=== PATIENT | female | born 1985 | race Caucasian/White ===

== ENCOUNTER 2020-05-12 03:02 | Inpatient (IN) | payer BC, SELFPAY ==
[~2020-05-12] VITALS: Ht 160 cm; Wt 135.6 kg
[2020-05-12 03:05] VITALS: BP_SYST 148
[2020-05-12] MEDS ORDERED: IBUP-1969 PO (03:24)
[2020-05-12] MEDS ORDERED: TRAM100T28 PO (03:24)
[2020-05-12] MEDS ORDERED: NACL 0.9% 1,000 ML IV ONE (03:45)
[2020-05-12] MEDS ORDERED: ONDANSETRON HCL 4 MG/2 ML VIAL IVP ONE (03:45)
[2020-05-12] MEDS ORDERED: traMADol HCL HCL 50 MG TABLET (ULTRAM) PO ONE (03:45)
[2020-05-12] MEDS ORDERED: ONDANSETRON HCL 4 MG/2 ML VIAL ONE (03:53)
[2020-05-12] MEDS ORDERED: MORPHINE 4 MG/ML INJ. SYRINGE IVP ONE (04:00)
[2020-05-12 04:15] LABS: WHITE BLOOD COUNT (AUTO) 11.9 K/uL (4.8-10.8)
[2020-05-12 04:20] LABS: BASOPHILS % (AUTO) 0.3 % (0.0-2.0); EOSINOPHILS # (AUTO) 0.2 K/uL (0.0-0.4); EOSINOPHILS % (AUTO) 1.5 % (0.0-4.0); HEMATOCRIT 40.2 % (36-48); HEMOGLOBIN 13.8 g/dL (12.0-16.0); LYMPHOCYTES # (AUTO) 1.9 K/uL (1.0-5.5); LYMPHOCYTES % (AUTO) 16.4 % (20.5-51.5); MEAN CORPUSCULAR HEMOGLOBIN 30 pg (27-31); MEAN CORPUSCULAR HGB CONC 34 % (32-36); MEAN CORPUSCULAR VOLUME 88 fL (79.0-98.0); MONOCYTES # (AUTO) 0.7 K/uL (0.0-1.0); MONOCYTES % (AUTO) 5.5 % (1.7-9.3); NEUTROPHILS # (AUTO) 9.1 K/uL (1.8-7.7); NEUTROPHILS % (AUTO) 76.3 % (40.0-70.0); PLATELET COUNT (AUTO) 419 K/uL (130-430); RED BLOOD CELL COUNT(AUTO) 4.59 MIL/uL (4.2-6.2); RED CELL DISTRIBUTION WIDTH 13.9 % (9.0-15.0)
[2020-05-12 04:27] LABS: CREATININE 0.94 mg/dL (0.55-1.30); POTASSIUM 3.3 mmol/L (3.5-5.1)
[2020-05-12 04:29] LABS: BILIRUBIN,URINE NEGATIVE (NEGATIVE); BLOOD, URINE 1+ (NEGATIVE); CLARITY/URINE CLEAR (CLEAR); COLOR,URINE YELLOW (YELLOW); GLUCOSE,URINE NEGATIVE (NEGATIVE); KETONES,URINE NEGATIVE (NEGATIVE); LEUKOCYTE ESTERASE ,URINE 3+ (NEGATIVE); NITRITE, URINE NEGATIVE (NEGATIVE); PROTEIN URINE NEGATIVE (NEGATIVE); UROBILINOGEN,URINE 0.2 (0.2-1.0)
[2020-05-12 04:33] LABS: ALBUMIN 3.4 g/dL (3.4-4.8); TOTAL BILIRUBIN 0.4 mg/dL (0.0-1.0)
[2020-05-12 04:36] LABS: BACTERIA,URINE MANY /HPF (None Seen); WBC,URINE 50-80 /HPF (0-3)
[2020-05-12] MEDS ORDERED: cefTRIAXone 1 GM IVPB PREMIX 50 ML IV ONE ×2 (04:45→04:46)
[2020-05-12] MEDS ORDERED: KETOROLAC TROMETHAMINE 30 MG VIAL ONE (05:39)
[2020-05-12] MEDS ORDERED: KETOROLAC TROMETHAMINE 30 MG VIAL IVP ONE (05:45)
[2020-05-12] MEDS ORDERED: OMEP20TA20 PO (05:54)
[2020-05-12] MEDS: cefTRIAXone 1 GM IVPB PREMIX 50 ML IV SCH (09:00)
[2020-05-12 09:12] VITALS: BP_SYST 137
[2020-05-12] MEDS: HYDROmorphone 1 MG INJ. 1 MG/ML AMPUL IVP PRN ×2 (13:36→18:43)
[2020-05-12] MEDS ORDERED: ENOXAPARIN SODIUM 40 MG/0.4 ML SYRINGE SUBCUT ONE (15:30)
[2020-05-12] MEDS ORDERED: PANTOPRAZOLE SODIUM 40 MG TAB PO ONE (15:45)
[2020-05-12] MEDS ORDERED: PANTOPRAZOLE SODIUM 40 MG TAB ONE (17:57)
[2020-05-12] MEDS: KCL 20 mEq in D5/0.45NS 1000mL 1,000 ML IV SCH ×2 (18:23→19:05)
[2020-05-12 20:00] VITALS: BP_SYST 128
[2020-05-12] MEDS ORDERED: KETOROLAC TROMETHAMINE 15 MG VIAL IVP PRN (20:15)
[2020-05-12] MEDS ORDERED: TAMSULOSIN HCL 0.4 MG CAP ONE (21:47)
[2020-05-12] MEDS: TAMSULOSIN HCL 0.4 MG CAP PO SCH (21:48)
[2020-05-13 00:05] VITALS: BP_SYST 123
[2020-05-13 02:41] LABS: PROTHROMBIN TIME 10.2 SECS (9.5-12.5)
[2020-05-13] MEDS ORDERED: KCL 20 mEq in D5/0.45NS 1000mL 1,000 ML IV ONE ×2 (03:32→23:37)
[2020-05-13] MEDS: KCL 20 mEq in D5/0.45NS 1000mL 1,000 ML IV SCH ×3 (03:38→23:39)
[2020-05-13] MEDS ORDERED: HYDROmorphone 1 MG INJ. 1 MG/ML AMPUL IVP PRN ×2 (07:00)
[2020-05-13] MEDS ORDERED: ONDANSETRON HCL 4 MG/2 ML VIAL IVP PRN (07:00)
[2020-05-13] MEDS ORDERED: LABETALOL 100 MG/ 20ML VIAL IVP PRN (07:00)
[2020-05-13] MEDS ORDERED: MIDAZOLAM HCL 2 MG/2 ML VIAL (VERSED) IVP PRN (07:00)
[2020-05-13] MEDS ORDERED: MEPERIDINE HCL/PF 25 MG/ML DISP.SYRIN IVP PRN (07:00)
[2020-05-13] MEDS ORDERED: METOCLOPRAMIDE HCL 10 MG/2 ML VIAL IVP PRN (07:00)
[2020-05-13 08:09] VITALS: BP_SYST 123
[2020-05-13] MEDS: PANTOPRAZOLE SODIUM 40 MG TAB PO SCH (10:15)
[2020-05-13] MEDS: TAMSULOSIN HCL 0.4 MG CAP PO SCH (10:15)
[2020-05-13] MEDS: ENOXAPARIN SODIUM 40 MG/0.4 ML SYRINGE SUBCUT SCH (10:16)
[2020-05-13] MEDS: cefTRIAXone 1 GM IVPB PREMIX 50 ML IV SCH (10:24)
[2020-05-13 12:18] VITALS: BP_SYST 129
[2020-05-13] MEDS: HYDROmorphone 1 MG INJ. 1 MG/ML AMPUL IVP PRN ×2 (14:04→19:58)
[2020-05-13 16:16] VITALS: BP_SYST 120
[2020-05-13 20:00] VITALS: BP_SYST 150
[2020-05-14] MEDS: HYDROmorphone 1 MG INJ. 1 MG/ML AMPUL IVP PRN ×3 (00:17→14:20)
[2020-05-14 01:08] VITALS: BP_SYST 140
[2020-05-14] MEDS: LR 1,000 ML IV SCH ×4 (01:15→16:20)
[2020-05-14 06:24] LABS: BASOPHILS % (AUTO) 0.2 % (0.0-2.0); EOSINOPHILS % (AUTO) 0.2 % (0.0-4.0); HEMATOCRIT 35.1 % (36-48); HEMOGLOBIN 11.8 g/dL (12.0-16.0); LYMPHOCYTES # (AUTO) 2.4 K/uL (1.0-5.5); LYMPHOCYTES % (AUTO) 19.7 % (20.5-51.5); MEAN CORPUSCULAR HEMOGLOBIN 29 pg (27-31); MEAN CORPUSCULAR HGB CONC 34 % (32-36); MEAN CORPUSCULAR VOLUME 88 fL (79.0-98.0); MONOCYTES # (AUTO) 0.8 K/uL (0.0-1.0); MONOCYTES % (AUTO) 6.3 % (1.7-9.3); NEUTROPHILS % (AUTO) 73.6 % (40.0-70.0); PLATELET COUNT (AUTO) 371 K/uL (130-430); RED CELL DISTRIBUTION WIDTH 14.3 % (9.0-15.0); WHITE BLOOD COUNT (AUTO) 12.3 K/uL (4.8-10.8)
[2020-05-14 08:00] VITALS: BP_SYST 143
[2020-05-14 08:18] LABS: CALCIUM 9.3 mg/dL (8.4-11.0); CREATININE 0.81 mg/dL (0.55-1.30); POTASSIUM 3.7 mmol/L (3.5-5.1)
[2020-05-14] MEDS: PANTOPRAZOLE SODIUM 40 MG TAB PO SCH (08:53)
[2020-05-14] MEDS: TAMSULOSIN HCL 0.4 MG CAP PO SCH (08:53)
[2020-05-14] MEDS: cefTRIAXone 1 GM IVPB PREMIX 50 ML IV SCH (08:54)
[2020-05-14] MEDS: ENOXAPARIN SODIUM 40 MG/0.4 ML SYRINGE SUBCUT SCH (08:58)
[2020-05-14 12:00] VITALS: BP_SYST 145
[2020-05-14] MEDS: KCL 20 mEq in D5/0.45NS 1000mL 1,000 ML IV SCH (14:27)
[2020-05-14 16:24] VITALS: BP_SYST 130
[2020-05-14] MEDS ORDERED: ACET-10 PO (18:05)
[2020-05-14] MEDS ORDERED: AMOX-426 PO (18:05)
[2020-05-14 18:14] VITALS: BP_SYST 143
[2020-05-15] MEDS ORDERED: CEFTRIAXONE SOD 1 GM/ D5W 50 ML IV SCH ×2 (09:00)
== END 2020-05-14 19:00 | disposition home or self-care (01) | DRG 661 ==
LOC: SED 03:02 → SMU 05:39
PROVIDERS: ADMIT Family Medicine; ATTEND Family Medicine
PROC: BT1F1ZZ Fluoroscopy of Left Kidney, Ureter and Bladder using Low Osmolar Contrast (ICD-10-PCS; 2020-05-13)
PROC: 0T778DZ Dilation of Left Ureter with Intraluminal Device, Via Natural or Artificial Opening Endoscopic (ICD-10-PCS; principal; 2020-05-13 06:07)
DX: N13.6 Pyonephrosis (principal); K21.9 Gastro-esophageal reflux disease without esophagitis; Z20.822 Contact with and (suspected) exposure to COVID-19
CPT/HCPCS: 36415; 76000; 76376; 80048; 80053; 81000-TC; 83690-TC; 84702-TC; 85025; 85610-TC; 85730-TC; 86886; 86900; 86901; 87040-TC; 87081; 87086; 93005; 94010; J0696; J1170; J1650; J1885; J2270; J2405; J3465; J7060; Q9967

== ENCOUNTER 2020-05-19 04:31 | Emergency (ER) | payer BC, SELFPAY ==
[~2020-05-19] VITALS: Ht 160 cm; Wt 133.4 kg
[~2020-05-19 04:31] MED LIST: ACET-10 PO; AMOX-426 PO; IBUP-1969 PO; OMEP20TA20 PO
[2020-05-19 04:35] VITALS: BP_SYST 155
[2020-05-19 06:24] LABS: BASOPHILS # (AUTO) 0.1 K/uL (0.0-0.2); BASOPHILS % (AUTO) 0.6 % (0.0-2.0); EOSINOPHILS # (AUTO) 0.4 K/uL (0.0-0.4); EOSINOPHILS % (AUTO) 3.5 % (0.0-4.0); HEMATOCRIT 42.2 % (36-48); HEMOGLOBIN 14.3 g/dL (12.0-16.0); LYMPHOCYTES # (AUTO) 2.4 K/uL (1.0-5.5); LYMPHOCYTES % (AUTO) 21.8 % (20.5-51.5); MEAN CORPUSCULAR HEMOGLOBIN 30 pg (27-31); MEAN CORPUSCULAR HGB CONC 34 % (32-36); MEAN CORPUSCULAR VOLUME 89 fL (79.0-98.0); MONOCYTES # (AUTO) 0.4 K/uL (0.0-1.0); MONOCYTES % (AUTO) 3.9 % (1.7-9.3); NEUTROPHILS # (AUTO) 7.6 K/uL (1.8-7.7); NEUTROPHILS % (AUTO) 70.2 % (40.0-70.0); PLATELET COUNT (AUTO) 469 K/uL (130-430); RED BLOOD CELL COUNT(AUTO) 4.77 MIL/uL (4.2-6.2); WHITE BLOOD COUNT (AUTO) 10.9 K/uL (4.8-10.8)
[2020-05-19] MEDS ORDERED: TAMS-11 PO (06:33)
[2020-05-19 06:43] LABS: BILIRUBIN,URINE NEGATIVE (NEGATIVE); BLOOD, URINE 3+ (NEGATIVE); CLARITY/URINE CLEAR (CLEAR); COLOR,URINE YELLOW (YELLOW); GLUCOSE,URINE NEGATIVE (NEGATIVE); KETONES,URINE NEGATIVE (NEGATIVE); LEUKOCYTE ESTERASE ,URINE 1+ (NEGATIVE); NITRITE, URINE NEGATIVE (NEGATIVE); PROTEIN URINE 1+ (NEGATIVE); UROBILINOGEN,URINE 0.2 (0.2-1.0)
[2020-05-19 06:44] LABS: CALCIUM 9.5 mg/dL (8.4-11.0); CREATININE 0.83 mg/dL (0.55-1.30); POTASSIUM 3.9 mmol/L (3.5-5.1)
[2020-05-19 06:50] LABS: ALBUMIN 3.7 g/dL (3.4-4.8); TOTAL BILIRUBIN 0.2 mg/dL (0.0-1.0)
[2020-05-19 06:53] LABS: BACTERIA,URINE None Seen /HPF (None Seen); RBC,URINE 20-50 /HPF (0-3)
[2020-05-19 07:00] VITALS: BP_SYST 157
== END 2020-05-19 07:00 | disposition home or self-care (01) ==
LOC: SED 04:31
DX: T83.192A Other mechanical complication of indwelling ureteral stent, initial encounter (principal); Z79.899 Other long term (current) drug therapy; X58.XXXA Exposure to other specified factors, initial encounter; Y93.89 Activity, other specified; Y92.89 Other specified places as the place of occurrence of the external cause; Y99.8 Other external cause status
CPT/HCPCS: 36415; 80053; 81000-TC; 81025; 85025; 99283